=== PATIENT | male | born 2000 | race Two or more races ===

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

== ENCOUNTER 2023-05-20 20:35 | Emergency (ER) | payer OTHER ==
[~2023-05-20] VITALS: Ht 182.9 cm; Wt 106.5 kg
[2023-05-20 21:59] VITALS: BP 131/78; PULSE 66; RESP 16; TEMP 98.1; O2SAT 97
[2023-05-20] MEDS ORDERED: TRIA0.02 TOP (23:35)
== END 2023-05-20 23:55 | disposition home or self-care (01) ==
LOC: ER 20:37
DX: R21 Rash and other nonspecific skin eruption (principal); F17.210 Nicotine dependence, cigarettes, uncomplicated; F12.10 Cannabis abuse, uncomplicated

== ENCOUNTER 2024-10-20 00:44 | Emergency (ER) | payer MEDICAID, OTHER ==
[~2024-10-20] VITALS: Ht 182.9 cm; Wt 111.7 kg
[~2024-10-20 00:44] MED LIST: TRIA0.02 TOP
[2024-10-20 03:37] VITALS: BP 118/73; PULSE 96; RESP 19; TEMP 98; O2SAT 96
[2024-10-20 03:54] LABS: Rapid Influenza A Negative (Negative); Rapid Influenza B Negative (Negative)
--- NOTE | 2024-10-20 04:36 | ED.PDOC ---
GI ASSESSMENT HPI Comments Pt C/O flulike Sx starting erday around 1700. Pt C/O N/V/D with fatigue and body aches. + sick contacts, denies recent travel, abdominal pain, difficulty breathing, shortness breath, or chest pain Chief Complaint: Flu like Time Seen by MD: 00:52 Primary Care Provider: miguel ángel Robb Notes: Nurses Notes, Medications, Allergies Allergies: Coded Allergies: NO KNOWN ALLERGIES (Unverified , 11/19/15) Home Meds Active Scripts Triamcinolone Acetonide (Triamcinolone Acetonide) 0.025 % Cre, 1 APPLIC TOP BID PRN, #30 GRAMS 0 Refills Prov:VAISHNAVI PRIETO 05/20/23 Information Source: Patient Mode of Arrival: Ambulatory Past Medical History PAST MEDICAL HISTORY: Denies Surgical History: Unknown Family History Family History: Reviewed,noncontributory to illness Social History Smoker: Cigarettes Alcohol: Occasionally Drugs: Marijuana Lives In: Home Constitutional: denies: chills, diaphoresis, fatigue, fever, malaise, sweats, weakness, others EENTM: denies: blurred vision, double vision, ear bleeding, ear discharge, ear drainage, ear pain, ear ringing, eye pain, eye redness, hearing loss, mouth pain, mouth swelling, nasal discharge, nose bleeding, nose congestion, nose pain, photophobia, tearing, throat pain, throat swelling, voice changes, others Respiratory: denies: cough, hemoptysis, orthopnea, SOB at rest, shortness of breath, SOB with excertion, stridor, wheezing, others Cardiovascular: denies: chest pain, dizzy spells, diaphoresis, Dyspnea on exertion, edema, irregular heart beat, left arm pain, lightheadedness, palpitations, PND, syncope, others Gastrointestinal: reports: diarrhea, nausea, vomiting; denies: abdomen distended, abdominal pain, blood streaked bowels, constipated, dysphagia, difficulty swallowing, hematemesis, melena, poor appetite, poor fluid intake, rectal bleeding, rectal pain, others Genitourinary: denies: burning, dysuria, flank pain, frequency, hematuria, incontinence, penile discharge, penile sore, pain, testicle pain, testicle swelling, urgency, others Neurological: denies: dizziness, fainting, headache, left sided numbness, left sided weakness, numbness, paresthesia, pre-existing deficit, right sided numbness, right sided weakness, seizure, speech problems, tingling, tremors, weakness, others Musculoskeletal: denies: back pain, gout, joint pain, joint swelling, muscle pain, muscle stiffness, neck pain, others Integumetry: denies: bruises, change in color, change in hair/nails, dryness, laceration, lesions, lumps, rash, wounds, others Allergic/Immunocompromised: denies: Difficulty Healing, Frequent Infections, Hives, Itching, others Hematologic/Lymphatic: denies: anemia, blood clots, easy bleeding, easy bruising, swollen glands, others Endocrine: denies: excessive hunger, excessive sweating, excessive thirst, excessive urination, flushing, intolerance to cold, intolerance to heat, unexplained weight gain, unexplained weight loss, others Psychiatric: denies: anxiety, bipolar disorder, depression, hopeless, panic disorder, schizophrenia, sleepless, suicidal, others Physical Exam General Appearance: No Apparent Distress, Normal HEENT: Normal ENT Inspection, Pharynx Normal, TMs Normal Neck: Full Range of Motion, Non-Tender Respiratory: Lungs Clear, No Respiratory Distress, Normal Breath Sounds Cardiovascular: No Edema, No JVD, No Murmur, No Gallop, Normal Peripheral Pulses, Regular Rate/Rhythm Breast Exam: Deferred Gastrointestinal: No Organomegaly, Non Tender, No Pulsatile Mass, Normal Bowel Sounds, Soft Genitalia: Deferred Pelvic: Deferred Rectal: Deferred Extremities: Normal capillary refill, Normal inspection, Normal range of motion, Non-tender, No pedal edema Musculoskeletal : Apperance: Normal Neurologic: Alert, 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 Was a procedure done?: No GI differential Dx Differential Diagnosis: Gastroenteritis, Food Poisoning, Bacterial, Parasitic, Viral X-Ray, Labs, Meds, VS Vital Signs Date Time Temp Pulse Resp B/P (MAP) Pulse Ox O2 Delivery O2 Flow Rate FiO2 10/20/24 03:37 96 19 96 Room Air 10/20/24 03:37 98.0 96 19 118/73 (88) 96 98.0 10/20/24 01:13 97.4 116 14 128/79 (93) 97 Lab Test 10/20/24 03:05 Range/Units Influenza Type A Antigen Negative Negative Influenza Type B Antigen Negative Negative X-Ray, Labs, Meds, VS Comment A, B and COVID-19 swabs negative. This is likely stomach flu, gastroenteritis. Patient eloped without swab results and discharge plan of care. Time of 1ST Reevaluation: 03:58 Reevaluation 1ST: Improved Patient Education/Counseling: Other Family Education/Counseling: Other Departure 1 Departure Time of Disposition: 04:01 Impression: Primary Impression: Gastroenteritis Disposition: 07 LEFT AWOL/ELOPED Condition: Stable Discharged With: Self Critical Care Note Critical Care Time?: No Stability Stability form required: BRITTANY Smalls Oct 20, 2024 04:36
[2024-10-20 06:27] LABS: Urine Bacteria None Seen /hpf (None Seen)
[2024-10-20 07:05] LABS: Urine Blood Negative /uL (Negative); Urine Clarity Turbid (Clear); Urine Color Yellow (Yellow); Urine Mucus MODERATE (None Seen); Urine Protein, UAD 1+ (Negative); Urine Specific Gravity 1.032 (1.001-1.035); Urine Squamous Epithelial Cell FEW /hpf (<5); Urine Urobilinogen 2 mg/dL (Negative); Urine WBC 3 /HPF (0-3); Urine pH 5.5 (5.0-9.0)
== END 2024-10-20 04:01 | disposition left against medical advice (07) ==
LOC: ER 00:44
DX: K52.9 Noninfective gastroenteritis and colitis, unspecified (principal); F17.210 Nicotine dependence, cigarettes, uncomplicated; F15.90 Other stimulant use, unspecified, uncomplicated; Z79.899 Other long term (current) drug therapy
CPT/HCPCS: 81001; 87804